=== PATIENT | female | born 1995 ===

== ENCOUNTER → 2020-05-14 | Outpatient (CLI) | payer OTHER | END | disposition home or self-care (01) | LOC: PRENATAL 09:30 | PROVIDERS: ATTEND Obstetrics & Gynecology Maternal & Fetal Medicine | DX: Z36.89 Encounter for other specified antenatal screening (principal); O36.80X1 Pregnancy with inconclusive fetal viability, fetus 1; Z3A.14 14 weeks gestation of pregnancy ==

== ENCOUNTER → 2020-08-10 | Outpatient (CLI) | payer OTHER | END | disposition home or self-care (01) | LOC: PRENATAL 13:00 | PROVIDERS: ATTEND Obstetrics & Gynecology Maternal & Fetal Medicine | DX: O35.0XX1 Maternal care for (suspected) central nervous system malformation in fetus, fetus 1 (principal); O35.3XX1 Maternal care for (suspected) damage to fetus from viral disease in mother, fetus 1; O98.512 Other viral diseases complicating pregnancy, second trimester; Z36.89 Encounter for other specified antenatal screening; Z3A.27 27 weeks gestation of pregnancy ==

== ENCOUNTER 2020-10-09 15:30 | Inpatient (IN) | payer OTHER ==
[~2020-10-09] VITALS: Ht 167.6 cm; Wt 58.1 kg
[2020-10-24] MEDS ORDERED: PRENATAL CAPLE1 EAC1 PO (05:23)
[2020-10-26] MEDS ORDERED: ACETAMINOPHEN325 M1 PO (10:18)
[2020-10-26] MEDS ORDERED: COLACE100 MG PO (10:19)
[2020-10-26] MEDS ORDERED: HYDROCORTISO453.6 G1 RECTAL (10:19)
== END 2020-10-26 11:31 | disposition home or self-care (01) | DRG 807 ==
LOC: OB/GYN 10-19 15:30 → LDR 10-24 03:57 → OB/GYN 10-24 05:55
PROVIDERS: ADMIT Obstetrics & Gynecology; ATTEND Obstetrics & Gynecology
PROC: 10E0XZZ Delivery of Products of Conception, External Approach (ICD-10-PCS; principal; 2020-10-24)
PROC: 0W8NXZZ Division of Female Perineum, External Approach (ICD-10-PCS; 2020-10-24)
PROC: 4A1HXFZ Monitoring of Products of Conception, Cardiac Rhythm, External Approach (ICD-10-PCS; 2020-10-24)
DX: O80 Encounter for full-term uncomplicated delivery (principal); Z37.0 Single live birth; Z3A.37 37 weeks gestation of pregnancy

== ENCOUNTER 2023-02-24 16:27 | Outpatient (CLI) | payer OTHER ==
[~2023-02-24 16:27] MED LIST: ACETAMINOPHEN325 M1 PO; COLACE100 MG PO; HYDROCORTISO453.6 G1 RECTAL; PRENATAL CAPLE1 EAC1 PO
== END 2023-02-24 16:28 | disposition home or self-care (01) ==
LOC: PRENATAL 16:27
PROVIDERS: ATTEND Obstetrics & Gynecology Maternal & Fetal Medicine
DX: O35.9XX0 Maternal care for (suspected) fetal abnormality and damage, unspecified, not applicable or unspecified (principal); O35.3XX0 Maternal care for (suspected) damage to fetus from viral disease in mother, not applicable or unspecified; O44.00 Complete placenta previa NOS or without hemorrhage, unspecified trimester; Z3A.29 29 weeks gestation of pregnancy

== ENCOUNTER 2023-04-11 14:01 | Outpatient (CLI) | payer OTHER | END 2023-04-11 14:03 | disposition home or self-care (01) | LOC: PRENATAL 14:01 | PROVIDERS: ATTEND Obstetrics & Gynecology Maternal & Fetal Medicine | DX: O26.849 Uterine size-date discrepancy, unspecified trimester (principal); O36.8199 Decreased fetal movements, unspecified trimester, other fetus; Z3A.33 33 weeks gestation of pregnancy ==